=== PATIENT | female | born 1985 | race Caucasian/White ===

== ENCOUNTER 2018-02-19 15:48 | Emergency (ER) | payer OTHER, MEDICAID ==
[2018-02-19 15:55] VITALS: BP 114/66; PULSE 98; RESP 16; TEMP 98.7; O2SAT 99
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
== END 2018-02-19 18:31 | disposition home or self-care (01) ==
LOC: H.ER 15:48
DX: M54.9 Dorsalgia, unspecified (principal); V89.2XXA Person injured in unspecified motor-vehicle accident, traffic, initial encounter; Y92.410 Unspecified street and highway as the place of occurrence of the external cause